=== PATIENT | male | born 1965 | race Caucasian/White ===

== ENCOUNTER 2018-06-02 05:18 | Inpatient (IN) ==
[2018-06-02] MEDS ORDERED: ceFAZolin 2 GM IV; once IV.SIG PRN (05:51)
[2018-06-02] MEDS ORDERED: SODIUM CHLOR 0.9% IV.SIG PRN (05:52)
[2018-06-02] MEDS ORDERED: GENTAMICIN IV.SIG PRN (05:52)
[2018-06-02] MEDS ORDERED: NEED HT OTHER SCH (06:00)
[2018-06-02] MEDS ORDERED: Metoprolol Tartrate 25 MG Tablet PO SCH (06:45)
[2018-06-02] MEDS ORDERED: fentaNYL Citrate Inj 100 MCG/2 ML Ampul ONE ×2 (06:45)
[2018-06-02] MEDS ORDERED: Chlorhexidine Gluconate 2% 1 Pack (2 Cloths) TOPICAL SCH (06:45)
[2018-06-02] MEDS ORDERED: HYDROmorphone PF Inj 2 MG/ML Vial ONE (06:46)
[2018-06-02] MEDS ORDERED: Sodium Chlor 0.9% Inj 500 ML IV.SIG SCH (07:00)
[2018-06-02 07:07] LABS: Baso # (Auto) 0.1 th/mm3 (0.0-0.2); Baso % (Auto) 0.6 % (0.0-2.0); Eos # (Auto) 0.2 th/mm3 (0.0-0.4); Eos % (Auto) 2.2 % (0.0-4.0); Hematocrit 35.4 % (39.0-51.0); Hemoglobin 11.6 gm/dL (13.0-17.0); Lymph # (Auto) 2.1 th/mm3 (1.0-4.8); Lymph % (Auto) 21.4 % (9.0-44.0); Mean Corpuscular HGB Conc 32.9 % (32.0-36.0); Mean Corpuscular Hemoglobin 30.8 pg (27.0-34.0); Mean Corpuscular Volume 93.6 fL (80.0-100.0); Mean Platelet Volume 9.3 fL (7.0-11.0); Mono # (Auto) 0.7 th/mm3 (0.0-0.9); Mono % (Auto) 6.8 % (0.0-8.0); Neut # (Auto) 6.8 th/mm3 (1.8-7.7); Platelet Count 241 th/mm3 (150-450); Red Blood Count 3.79 mil/mm3 (4.50-5.90); Red Cell Distribution Width 17.3 % (11.6-17.2); White Blood Count 9.9 th/mm3 (4.0-11.0)
[2018-06-02] MEDS ORDERED: Thrombin Topical Soln 5,000 UNIT Vial TOPICAL ONE (07:11)
[2018-06-02] MEDS ORDERED: Gelatin Size 100 Topical Foam ONE (07:11)
[2018-06-02] MEDS ORDERED: Heparin - SQ 10,000 UNITS/ML Vial SQ ONE (07:18)
[2018-06-02 07:25] LABS: Albumin 3.5 g/dL (3.4-5.0); Anion Gap 8 meq/L (5-15); Aspartate Aminotransferase 24 U/L (15-37); Blood Urea Nitrogen 16 mg/dL (7-18); Calcium 9.5 mg/dL (8.5-10.1); Carbon Dioxide 28.2 meq/L (21.0-32.0); Chloride 106 meq/L (98-107); Glomerular Filtration Rate 87 mL/min (>89); Glucose,Random 101 mg/dL (74-106); Potassium 4.5 meq/L (3.5-5.1); Sodium 142 meq/L (136-145)
[2018-06-02 07:27] LABS: Alanine Aminotransferase 58 U/L (12-78); Alkaline Phosphatase 120 U/L (45-117); Total Protein 7.8 g/dL (6.4-8.2)
--- NOTE | 2018-06-02 07:44 | ECG ---
Date Performed: 06/02/2018 Time Performed: 06:08:08 PTAGE: 52 years EKG: Sinus rhythm Rightward axis Borderline ECG NO PREVIOUS TRACING DOCTOR: Сергей Smith Interpretating Date/Time 06/02/2018 07:43:03
--- NOTE | 2018-06-02 09:47 | MP ---
cc: Duran Bucio MD DATE OF OPERATION: 06/02/2018 PREOPERATIVE DIAGNOSIS: Bladder carcinoma. POSTOPERATIVE DIAGNOSIS: Metastatic bladder carcinoma. PROCEDURE PERFORMED: Exploratory laparotomy with frozen lymph node dissection from the left lateral wall of the bladder and pelvic sidewall. SURGEON: Duran Bucio MD ANESTHESIA: General. NOTE IN DETAIL: This gentleman is [id number]. He was referred to me by our sister office in [place] by Dr. Glenn Meier for consideration of the above-mentioned procedure. Unfortunately, the gentleman has been a rather heavy smoker, smoking up to 2 packs a day for quite some time. He has had trouble obtaining insurance for hospitalization purposes that have finally been achieved. He had a double-J stent placed by Dr. Meier in [place] on 04/14/2018. In any event, he was seen by us. We agreed to at least take a look and make a serious attempt at removing his bladder and providing an ileal loop for urinary diversion. Having received appropriate preoperative antibiotics in the holding area, he was taken to the operating room, given a general anesthetic where a timeout was taken for identification purposes. He was then given an appropriate shave prep and scrub prep. A Swanson catheter was then inserted. A longitudinal incision was made suprapubically to shortly from the pubis to shortly above the umbilicus, carried on down into the abdomen. The right pelvic sidewall was seen to be actually rather clean. There is one questionable nodule. I then attempted to peel the left pelvic sidewall and I met quite a bit of resistance. It appears that the left femoral and iliac artery, as well as the vein and the obturator nerve were involved in a mass on that side. I shaved the edge of the mass and personally went with the tissue to the frozen section laboratory and with the help of Dr. 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 Because of the severity of the illness, the nature of the disease and the fact that he still has a functional bladder, I elected to terminate the procedure. I could not see any advantage at this point of removing the bladder and subjecting him to the ravages of that and the complications associated with an ileal loop. He may be a candidate for some chemotherapy, but I do not think that anything is going to be curative in this state. So the external fascia was whip-stitched closed with a PDS ligature and the skin was closed over subcuticularly. He tolerated the procedure well. Our estimated blood loss was maybe 10-20 mL. He tolerated the procedure well and was returned to the recovery room in stable condition. MD KORIN Suárez/PAU , 09:27 AM , 09:46 AM
[2018-06-02] MEDS ORDERED: Morphine Inj 30 MG/30 ML PCA.VIAL PCA ONE (09:54)
[2018-06-02] MEDS ORDERED: Morphine Inj 4 MG/ML Vial IV.SIG ONE (10:22)
[2018-06-02] MEDS ORDERED: Naloxone Inj 0.4 MG/ML Vial IV.PUSH PRN (10:22)
[2018-06-02] MEDS ORDERED: Dextrose 5%/NaCl 0.45% Inj 1,000 ML IV.SIG SCH (10:30)
[2018-06-02] MEDS: Morphine Inj 30 MG/30 ML PCA.VIAL PCA PRN ×2 (11:06→17:55)
[2018-06-02] MEDS ORDERED: Neostigmine Inj 5 MG/5 ML Syringe IV.PUSH ONE (15:29)
[2018-06-02] MEDS ORDERED: Lidocaine PF 1% Inj 5 ML Syringe INFILTRATN ONE (15:29)
[2018-06-02] MEDS ORDERED: Phenylephrine/NS 1000 MCG/10ML Syringe IV.PUSH ONE (15:29)
[2018-06-02] MEDS ORDERED: Normosol-R pH 7.4 Inj 2,000 ML IV.CONT ONE (15:29)
[2018-06-02] MEDS ORDERED: Glycopyrrolate Inj 1 MG/5 ML Syringe IV.PUSH ONE (15:29)
[2018-06-03] MEDS: Morphine Inj 30 MG/30 ML PCA.VIAL PCA PRN (09:56)
[2018-06-04] MEDS ORDERED: Acetaminophen 325 MG Tablet PO PRN (14:24)
== END 2018-06-05 15:30 | disposition home or self-care (01) ==
LOC: HSDI 05:18 → N06 12:08